=== PATIENT | male | born 1985 | race Caucasian/White ===

== ENCOUNTER 2020-10-14 01:47 | Emergency (ER) | payer SELFPAY ==
[2020-10-14 01:52] VITALS: BP 158/100; PULSE 99; RESP 18; TEMP 36.2; O2SAT 100; BMI 28.8
--- NOTE | 2020-10-14 02:04 | W.ED.GIBLEED ---
HPI - GI Bleed General: Chief complaint: GI Bleed Stated complaint: blood in stool Time Seen by Provider: 10/14/20 02:04 Source: patient Mode of arrival: ambulatory Limitations: no limitations History of Present Illness: HPI Narrative: Patient comes in with concerns of bleeding after a bowel movement tonight. Patient denies any previous episodes. Patient reports no pain or discomfort. Patient appears well. Review of Systems General: Reports: 10 or more systems reviewed and unremarkable except in HPI and below GI: Reports: rectal pain Physical Exam Const: COMMON NORMALS: no acute distress and patient oriented x3 GENERAL APPEARANCE: cooperative HENMT: COMMON NORMALS: normocephalic and Normal external nose present HEAD & SCALP: normal to inspection and normocephalic NOSE: Normal external nose present Eye: GENERAL EYE: appearance normal, both eyes and all related structures Neck/C-Spine: COMMON NORMALS: full ROM Chest: COMMONS NORMALS: normal inspection of the chest Resp: COMMON NORMALS: normal respiratory effort EFFORT & INSPECTION: Yes able to speak in complete sentences Cardio: COMMON NORMALS: regular rate and regular rhythm RATE: regular rate RHYTHM: regular rhythm GI: COMMON NORMALS: non-tender RECTAL EXAM: Yes hemorrhoids (Multiple hemorrhoids encompassing anal opening. Ruptured hemorrhoid at 4 o) Back/Pelvis: COMMON NORMALS: thoracic and lumbar spine normal to inspection Extremity: COMMON NORMALS: normal to inspection Neuro: COMMON NORMALS: patient oriented x3 and moves all extremities Psych: COMMON NORMALS: mental status grossly normal and cooperative Skin: COMMON NORMALS: no rashes or lesions noted GENERAL SKIN EXAM: no rashes or lesions noted Course Vital Signs: Vital signs: Vital Signs Temperature 97.2 F L 10/14/20 01:52 Pulse Rate 99 10/14/20 01:52 Respiratory Rate 18 10/14/20 01:52 Blood Pressure 158/100 10/14/20 01:52 Pulse Oximetry 100 10/14/20 01:52 MDM - GI Bleed MDM Narrative: Medical decision making narrative: Patient presents with concerns of bleeding. On exam patient has multiple hemorrhoids around the anal opening. Patient has 1 open hemorrhoid with mall amount of bleeding at the 4 o'clock position. Good rectal tone is noted. No fecal impaction is noted. Reviewed exam with patient with recommendations for further treatment and follow-up. Patient reported understanding of care plan. Patient is limited due to no insurance. Discharge Plan Discharge Patient Disposition: Home Clinical Impression: Hemorrhoids Qualifiers: Hemorrhoid type: fourth degree Qualified Code(s): K64.3 - Fourth degree hemorrhoids Condition: Stable Prescriptions: New Anusol-HC 25 mg suppository 25 mg NH BID 14 Days RF: 0 Colace 100 mg capsule 100 mg PO BID Qty: 60 RF: 0 Discharge Orders: Discharge Order (Routine); Ordered 10/14/20 Ordered By: Daniel Lane Discharge Diet: Usual diet Discharge Activity: Increase activity as tolerated Patient Instructions: Hemorrhoids (ED) Activity Restrictions/Additional Instructions: Home and rest. Good hygiene with Tucks pads. Avoid constipation. Avoid straining for stools. Use hydrocortisone suppositories twice daily for the next 2 weeks. Follow-up with primary care in 1 week. Return to the emergency department for worsening symptoms or new concerns. Coding Level of Care Code ED Door Assembler for Freddie Fwkayden Exam Comprehensive
[2020-10-14 02:28] VITALS: BP 121/78; PULSE 70; RESP 14; O2SAT 99
[2020-10-14] MEDS: hydrocortisone 2.5% cream 28 gm 1 APPLIC PR (02:28)
--- NOTE | 2020-10-16 12:27 | DCPLANNER ---
assurance manager insurance had message to speak with patient about getting established with a primary care physician. assurance manager insurance called the number in the chart, , this is the phone number for [facility] [place]. assurance manager insurance was unable to speak with patient at this time, and unable to leave a message for patient at this time.
== END 2020-10-14 02:30 | disposition home or self-care (01) ==
PROVIDERS: Emergency Provider Nurse Practitioner Family
DX: K64.3 Fourth degree hemorrhoids (principal)
CPT/HCPCS: 12345; 99281

== ENCOUNTER 2024-02-18 08:28 | Emergency (ER) | payer OTHER, SELFPAY ==
[2024-02-18 08:58] VITALS: BP 139/81; PULSE 68; TEMP 36.9; O2SAT 97; BMI 23.7
--- NOTE | 2024-02-18 09:14 | W.ED.DENTAL ---
HPI - Dental/Oral General: Chief complaint: Dental/Oral Stated complaint: Mouth pain Time Seen by Provider: 02/18/24 08:41 Source: patient Mode of arrival: ambulatory History of Present Illness: 38-year-old male presents emergency room with complaint of dental pain and swelling. Began over the last couple days he has a large amount of swelling in the right maxillary region. No fever sweats or chills no drainage patient has poor dentition has not been able to see a dentist. MD Complaint: tooth pain Associated symptoms: Denies fever(s) Review of Systems Const: Denies: fever(s) or chills Card: Denies: chest pain Resp: Denies: dyspnea GI: Denies: abdominal pain Musc: Denies: neck pain or back pain Skin/Breast: Denies: rash Physical Exam Const: COMMON NORMALS: no acute distress GENERAL APPEARANCE: cooperative and comfortable ORIENTATION/CONSCIOUSNESS: Yes awake, Yes oriented to person, Yes oriented to place and Yes oriented to time HENMT: COMMON NORMALS: normocephalic, atraumatic and hearing grossly normal bilaterally HEAD & SCALP: normocephalic and atraumatic OTHER: Large amount of swelling in the right maxillary region noted. Gum swelling and erosion of teeth at the area of the second and third molars. No active drainage. Resp: COMMON NORMALS: normal respiratory effort, No retractions, No use of accessory muscles and clear to auscultation bilaterally AUSCULTATION: clear to auscultation bilaterally Cardio: COMMON NORMALS: regular rate, regular rhythm and No murmurs present (Cardio) RATE: regular rate RHYTHM: regular rhythm GI: COMMON NORMALS: Soft to palpation and No hepatosplenomegaly present AUSCULTATION: Yes normoactive bowel sounds PALPATION: Yes Soft to palpation, No Tenderness to palpation present (GI), No Guarding due to palpation present (GI) and Yes No hepatosplenomegaly present Extremity: COMMON NORMALS: normal to inspection, capillary refill normal, no clubbing, cyanosis or edema, no calf tenderness and no pedal edema Neuro: SENSORIUM/ORIENTATION: Yes oriented to person, Yes oriented to place and Yes oriented to time Skin: COMMON NORMALS: no rashes or lesions noted GENERAL SKIN EXAM: no rashes or lesions noted Course Vital Signs: Vital signs: Vital Signs Temperature 98.4 F 02/18/24 08:58 Pulse Rate 68 02/18/24 08:58 Blood Pressure 139/81 02/18/24 08:58 Pulse Oximetry 97 02/18/24 08:58 Oxygen Delivery Me thod Room Air 02/18/24 08:58 MDM - Dental/Oral Medical Decision Making Dental abscess started on Augmentin use diclofenac hydrocodone for pain or discomfort encouraged follow-up with dentist for definitive care No radiology studies performed this visit Discharge Plan Discharge Patient Disposition: Home Clinical Impression: Dental abscess Condition: Stable Prescriptions: New amoxicillin-pot clavulanate 875-125 mg tablet 1 tab PO BID Qty: 14 0RF hydrocodone-acetaminophen 5-325 mg tablet 1 tab PO Q6H PRN (Reason: pain) Qty: 10 0RF diclofenac sodium 75 mg tablet,delayed release (DR/EC) 75 mg PO Q12H PRN (Reason: pain) Qty: 20 0RF No Action Colace 100 mg capsule 100 mg PO BID Qty: 60 0RF Discharge Orders: Discharge ED (Routine); Ordered 02/18/24 Ordered By: Viktor Fong Discharge Diet: Soft Mechanical Discharge Activity: Increase activity as tolerated Patient Instructions: Dental Abscess (ED), Opioid Safety, Pain Management Activity Restrictions/Additional Instructions: Thank you for choosing [facility] for your healthcare needs today. Please realize this is an emergency room and that we are providing you with a medical screening exam and this may not be complete and all inclusive of all the testing and or work up that you may need to determine your ailment or severity of your illness. It is very important that you follow up as instructed or that you return to the Emergency Department should you have concerns or if your condition changes or worsens in any way. You are seen today for dental abscess. Medications given will improve symptoms, but you do need to be seen by dentist for definitive care. Stand Alone Forms: Work/School Release Coding Level of Care Code ED Food [employer] Bever[employer] Assistant Manager for Freddie Carballo
[2024-02-18 09:17] VITALS: BP 139/81; PULSE 68; TEMP 36.9; O2SAT 97
== END 2024-02-18 09:27 | disposition home or self-care (01) ==
PROVIDERS: Emergency Provider Family Medicine
DX: K04.7 Periapical abscess without sinus (principal)
CPT/HCPCS: 99284

== ENCOUNTER 2024-07-02 12:53 | Emergency (ER) | payer SELFPAY ==
[2024-07-02 13:03] VITALS: BP 127/71; PULSE 78; RESP 16; TEMP 36.7; O2SAT 100
--- NOTE | 2024-07-02 14:06 | XR_ITS ---
WS: [id number] Left femur and thigh, AP and lateral views, 07/02/2024 Clinical Data: injury Comparison: None. Findings: No fractures or dislocations are seen. The soft tissues are normal. The visualized knee shows minimal chondral cartilage calcification. The left hip is normal. The adjacent left pelvis shows no abnormalities. XR/XR femur LT min 2V* [id number] Impression: Negative left femur and thigh.
--- NOTE | 2024-07-02 14:06 | W.ED.LOWEXIN ---
HPI - Extremity Injury (Lower) General: Chief Complaint: Extremity Injury, Lower Stated Complaint: Dario fell on left hip Time Seen by Provider: 07/02/24 13:11 Source: patient Mode of arrival: ambulatory Limitations: no limitations History of Present Illness: Patient is a 38-year-old male who presents to ED today with a complaint of pain to his left thigh beginning yesterday. Patient states he was at work when a railroad tie fell onto his left thigh. He states the extremity was trapped for approximately a minute. He states since then he has had discomfort. He is still ambulatory on the extremity. He has noticed a small amount of bruising. He has not noticed any swelling. He denies numbness, tingling, loss of sensation to the extremity. He denies any pallor or coolness to the extremity. MD complaint: thigh injury Onset (ago): day(s) (yesterday) Injury: Left: thigh Type of Injury: other (crush) Place: work Severity: moderate Relieving factors: immobilization Exacerbating factors: movement and palpation Associated symptoms: Reports no associated symptoms Other symptoms: none Review of Systems Const: Denies: fever(s) Card: Denies: chest pain Resp: Denies: dyspnea Musc: Reports: extremity pain; Denies: neck pain, back pain, extremity swelling, joint pain or joint swelling Neuro: Denies: numbness in extremities, weakness in extremities or sensory changes Physical Exam Const: COMMON NORMALS: no acute distress, average body habitus, patient oriented x3, no limitations, healthy appearing, alert and well nourished Extremity: COMMON NORMALS: full ROM, capillary refill normal, no joint enlargement, no clubbing, cyanosis or edema, no calf tenderness and no pedal edema GENERAL: Yes normal exam except as noted LEFT LOWER EXTREMITY: Yes upper leg (faint ecchymosis; no edema noted) Left upper leg: Yes inspection (normal gross inspection), Yes palpation (compartments are soft), Yes neurovascular exam (normal; distal pulses and sensation normal) and Yes other (pain not out of proportion to exam) Neuro: COMMON NORMALS: patient oriented x3, moves all extremities, no focal motor deficits and no sensory deficits noted SENSORIUM/ORIENTATION: Yes alert Course Vital Signs: Vital signs: Vital Signs Temperature 98.0 F 07/02/24 13:03 Pulse Rate 78 07/02/24 13:03 Respiratory Rate 16 07/02/24 13:03 Blood Pressure 127/71 07/02/24 13:03 Pulse Oximetry 100 07/02/24 13:03 Oxygen Delivery Me thod Room Air 07/02/24 13:03 MDM - Extremity Injury (Lower) Medical Decision Making Patient here following a crush injury to his left thigh yesterday. Extremity was pinned for approximately a minute. Based on history, history and physical exam was conducted to rule out acute fracture, compartment syndrome, and other emergent etiologies. His exam was unremarkable and he does not exhibit any signs consistent with a compartment syndrome. His x-ray is unremarkable. Patient will be allowed discharge with return precautions. Medical Records I reviewed the patient's medical records. Lab Data Radiology Impressions Femur X-Ray 07/02/24 14:06 Impression: Negative left femur and thigh. All radiology interpretation(s) finalized by discharge Discharge Plan Discharge Patient Disposition: Home Clinical Impression: Contusion of left thigh Qualifiers: Encounter type: initial encounter Qualified Code(s): S70.12XA - Contusion of left thigh, initial encounter Condition: Stable Prescriptions: No Action Colace 100 mg capsule 100 mg PO BID Qty: 60 0RF amoxicillin-pot clavulanate 875-125 mg tablet 1 tab PO BID Qty: 14 0RF hydrocodone-acetaminophen 5-325 mg tablet 1 tab PO Q6H PRN (Reason: pain) Qty: 10 0RF diclofenac sodium 75 mg tablet,delayed release (DR/EC) 75 mg PO Q12H PRN (Reason: pain) Qty: 20 0RF Discharge Orders: Discharge ED (Routine); Ordered 07/02/24 Ordered By: Luz Roberto Activity Restrictions/Additional Instructions: As we discussed I would like you to ice and elevate the extremity. Time should improve your symptoms. You need to return to the emergency department for worsening or severe pain (we spoke about pain out of proportion ), numbness, tingling, loss of sensation to your leg, any paleness or coldness to the extremity, or any other concerns you may have. Coding Level of Care Code ED Remedial Reading Teacher for Freddie Carballo
[2024-07-02 14:47] VITALS: BP 123/79; PULSE 71; O2SAT 99
== END 2024-07-02 14:45 | disposition home or self-care (01) ==
PROVIDERS: Emergency Provider Physician Assistant
DX: S70.12XA Contusion of left thigh, initial encounter (principal); W20.8XXA Other cause of strike by thrown, projected or falling object, initial encounter; Y99.0 Civilian activity done for income or pay
CPT/HCPCS: 73552; 99283

== ENCOUNTER → 2025-09-14 09:39 | Outpatient (BNVA) | payer OTHER, SELFPAY | PROVIDERS: PCP Clinical Nurse Specialist Adult Health; Visit Provider Clinical Nurse Specialist Adult Health | DX: N30.20 Other chronic cystitis without hematuria (principal); Z20.2 Contact with and (suspected) exposure to infections with a predominantly sexual mode of transmission; Z76.89 Persons encountering health services in other specified circumstances | CPT/HCPCS: 87491; 87591; 87661 ==